=== PATIENT | male | born 1945 | race Caucasian/White ===

== ENCOUNTER 2018-05-03 22:43 | Observation (INO) ==
[2018-05-03] MEDS ORDERED: Morphine Inj 4 MG/ML Vial IV.PUSH ONE (23:19)
[2018-05-03 23:38] LABS: Baso % (Auto) 0.4 % (0.0-2.0); Eos # (Auto) 0.3 th/mm3 (0.0-0.4); Eos % (Auto) 2.4 % (0.0-4.0); Hematocrit 39.8 % (39.0-51.0); Hemoglobin 13.5 gm/dL (13.0-17.0); Lymph # (Auto) 0.5 th/mm3 (1.0-4.8); Mean Corpuscular HGB Conc 33.9 % (32.0-36.0); Mean Corpuscular Hemoglobin 31.3 pg (27.0-34.0); Mean Corpuscular Volume 92.5 fL (80.0-100.0); Mean Platelet Volume 7.8 fL (7.0-11.0); Mono # (Auto) 0.4 th/mm3 (0.0-0.9); Mono % (Auto) 3.8 % (0.0-8.0); Neut # (Auto) 9.6 th/mm3 (1.8-7.7); Neut % (Auto) 88.4 % (16.0-70.0); Platelet Count 216 th/mm3 (150-450); Red Cell Distribution Width 16.3 % (11.6-17.2); White Blood Count 10.9 th/mm3 (4.0-11.0)
[2018-05-03 23:53] LABS: Albumin 3.5 g/dL (3.4-5.0); Anion Gap 6 meq/L (5-15); Aspartate Aminotransferase 17 U/L (15-37); Blood Urea Nitrogen 18 mg/dL (7-18); Calcium 8.5 mg/dL (8.5-10.1); Carbon Dioxide 26.9 meq/L (21.0-32.0); Chloride 108 meq/L (98-107); Glomerular Filtration Rate 76 mL/min (>89); Glucose,Random 172 mg/dL (74-106); Lipase 115 U/L (73-393); Potassium 4.2 meq/L (3.5-5.1); Sodium 141 meq/L (136-145)
[2018-05-03 23:57] LABS: Alanine Aminotransferase 27 U/L (12-78); Alkaline Phosphatase 116 U/L (45-117); Total Protein 8.1 g/dL (6.4-8.2)
--- NOTE | 2018-05-03 23:59 | XR ---
EXAM DATE: 05/03/2018 11:17 PM EDT AGE/SEX: 72 years / Male INDICATIONS: Lower chest/upper abdomen pain today. CLINICAL DATA: This is the patient's initial encounter. Patient reports that signs and symptoms have been present for 1 day and indicates a pain score of 5/10. MEDICAL/SURGICAL HISTORY: . Chronic obstructive pulmonary disease. Asthma. Lung cancer. Hyperli pemia. Appendectomy. Nasal. Knee. Neck. COMPARISON: POI, XR CHEST PA AND LAT, 03/12/2018. TLI, PET/CT TUMOR, 04/22/2018. . FINDINGS: The heart size is normal. This increased density at the left upper and mid lateral lung. There is pro minence of the hilar regions bilaterally. The right lung is clear. The patient has had a recent PET s can. CONCLUSION: Persistent increased density in the lateral left upper and midlung. Persistent prominence of the hilar regions especially on the left. This appearance is unchanged. Electronically signed by: Ye Antonio MD 05/03/2018 11:58 PM EDT
--- NOTE | 2018-05-04 00:24 | ED ---
HPI General Chief complaint: Abdominal Pain Stated complaint: stomach pain Time Seen by Provider: 05/03/18 23:11 Source: patient Mode of arrival: ambulatory Limitations: no limitations History of Present Illness HPI narrative: 72-year-old male came to the emergency room with history of sudden onset epigastric and upper abdominal bandlike pain that started at 5 PM. Patient describes the pain like a pressure. No nausea or vomiting. Patient says at one point he became clammy and slightly sweaty that lasted for about 10 minutes. No aggravating or relieving factors identified. Patient does not recall having this kind of pain in the past. No radiation of the pain. Vital signs were relatively stable upon arrival. Patient appeared to be uncomfortable. He has history of COPD, coronary artery disease and lung cancer. Patient says that he was getting chemotherapy and radiation therapy up until August of this year. He had a PET scan done about 1 week ago where a new lesion on his left shoulder was noticed. Onset (ago): hour(s) (8) Location: chest and abdomen Severity scale (1-10): 6 Quality: constant Pain Consistency: constant Relieving factors: none Exacerbating factors: none Associated symptoms: Reports diaphoresis Treatments prior to arrival: Reports none Related Data Home Medications Medication Instructions Recorded Confirmed albuterol sulfate [ProAir HFA] 2 puff INHALATION TID 05/03/18 05/03/18 aspirin [Aspirin Low Dose] 81 mg PO DAILY 05/03/18 05/03/18 atorvastatin 80 mg PO DAILY 05/03/18 05/03/18 benzonatate [Tessalon Perles] 100 mg PO TID PRN 05/03/18 05/03/18 cetirizine [Zyrtec] 10 mg PO DAILY 05/03/18 05/03/18 clopidogrel [Plavix] 75 mg PO DAILY 05/03/18 05/03/18 coenzyme Q10 [CoQ-10] 100 mg PO DAILY 05/03/18 05/03/18 glucosamine sulfate 1,000 mg PO BID 05/03/18 05/03/18 ipratropium bromide [Atrovent HFA] 2 puff INHALATION TID 05/03/18 05/03/18 magnesium 20 mg/kg PO BID 05/03/18 05/03/18 multivitamin [Men's Multi-Vitamin] 1 tab PO DAILY 05/03/18 05/03/18 pantoprazole [Protonix] 20 mg PO DAILY 05/03/18 05/03/18 potassium 198 mg PO DAILY 05/03/18 05/03/18 Allergies Allergy/AdvReac Type Severity Reaction Status Date / Time penicillin G Allergy Severe MAY KILL Verified 05/03/18 22:47 HIM Review of Systems ROS: all other systems reviewed are negative Cardiovascular Reports chest pain and Reports diaphoresis Gastrointestinal Reports abdominal pain FOR[facility]LY [facility], [facility] Medical History Medical History ASHD (arteriosclerotic heart disease) (Acute) COPD (chronic obstructive pulmonary disease) (Acute) Heart attack (Acute) Hx of cancer of lung (Acute) Hyperlipemia (Acute) Surgical History Surgical History History of nasal surgery (Acute) Hx of appendectomy (Acute) Hx of knee surgery (Acute) Hx of neck surgery (Acute) Social History Social History Substance History: No History of Abuse Second Hand Smoke Exposure: No Smoking Status: Former smoker How Often Do You Have a Drink Containing Alcohol: 2 to 3 times a week Immunization History Tetanus Immunization: Unsure Exam Narrative Exam Narrative: GENERAL: Awake, alert, moderate distress, obese SKIN: Focused skin assessment warm/dry. HEAD: Atraumatic. Normocephalic. EYES: Pupils equal and round. No scleral icterus. No injection or drainage. ENT: No nasal bleeding or discharge. Mucous membranes pink and moist. NECK: Trachea midline. No JVD. CARDIOVASCULAR: Regular rate and rhythm. No murmur appreciated. RESPIRATORY: No accessory muscle use. Clear to auscultation. Breath sounds equal bilaterally. GASTROINTESTINAL: Abdomen soft, right upper quadrant tenderness on deep palpation, distended. Hepatic and splenic margins not palpable. MUSCULOSKELETAL: No obvious deformities. No clubbing. No cyanosis. No edema. NEUROLOGICAL: Awake and alert. No obvious cranial nerve deficits. Motor grossly within normal limits. Normal speech. PSYCHIATRIC: Appropriate mood and affect; insight and judgment normal. Course Initial Documented Vital Signs Temperature 97.8 F 05/03/18 22:45 Pulse Rate 70 05/03/18 22:45 Respiratory Rate 18 05/03/18 22:45 Blood Pressure 163/91 H 05/03/18 22:45 Pulse Oximetry 93 L 05/03/18 22:45 Last Documented Vital Signs Temperature 98.1 F 05/04/18 11:57 Pulse Rate 79 05/04/18 12:00 Respiratory Rate 18 05/04/18 11:57 Blood Pressure 131/64 05/04/18 11:57 Pulse Oximetry 94 L 05/04/18 11:57 Medical Decision Making MDM Narrative Medical decision making narrative: 1:30 AM blood test results are back and within acceptable limits. CT thoracic aortogram does not show any acute findings. Given his symptoms and history of coronary artery disease I am concerned with this pain since this could be cardiac in nature and would like to admit him to be ruled out. I explained this to the patient and he understands and agreeable with the plan. Medical Screen Exam Complete: Yes Emergency Medical Condition: Yes Lab Data Result diagrams: 05/04/18 05:59 05/04/18 05:59 Lab Results 05/03/18 05/03/18 05/04/18 Range/Units 23:05 23:05 02:18 WBC 10.9 (4.0-11.0) th/mm3 RBC 4.30 L (4.50-5.90) mil/mm3 Hgb 13.5 (13.0-17.0) gm/dL Hct 39.8 (39.0-51.0) % MCV 92.5 (80.0-100.0) fL MCH 31.3 (27.0-34.0) pg MCHC 33.9 (32.0-36.0) % RDW 16.3 (11.6-17.2) % Plt Count 216 (150-450) th/mm3 MPV 7.8 (7.0-11.0) fL Neut % (Auto) 88.4 H (16.0-70.0) % Lymph % (Auto) 5.0 L (9.0-44.0) % Park % (Auto) 3.8 (0.0-8.0) % Eos % (Auto) 2.4 (0.0-4.0) % Baso % (Auto) 0.4 (0.0-2.0) % Neut # (Auto) 9.6 H (1.8-7.7) th/mm3 Lymph # (Auto) 0.5 L (1.0-4.8) th/mm3 Park # (Auto) 0.4 (0.0-0.9) th/mm3 Eos # (Auto) 0.3 (0.0-0.4) th/mm3 Baso # (Auto) 0.0 (0.0-0.2) th/mm3 WBC Differential . Differential Comment Auto diff final Sodium 141 (136-145) meq/L Potassium 4.2 (3.5-5.1) meq/L Chloride 108 H (98-107) meq/L Carbon Dioxide 26.9 (21.0-32.0) meq/L Anion Gap 6 (5-15) meq/L BUN 18 (7-18) mg/dL Creatinine 0.98 (0.60-1.30) mg/dL Estimated GFR 76 L (>89) mL/min Random Glucose 172 H (74-106) mg/dL Calcium 8.5 (8.5-10.1) mg/dL Total Bilirubin 0.2 (0.2-1.0) mg/dL AST 17 (15-37) U/L ALT 27 (12-78) U/L Alkaline Phosphatase 116 (45-117) U/L Troponin I Less than 0.02 L Less than 0.02 L (0.02-0.05) ng/mL Total Protein 8.1 (6.4-8.2) g/dL Albumin 3.5 (3.4-5.0) g/dL Lipase 115 (73-393) U/L 05/04/18 05/04/18 Range/Units 05:59 05:59 WBC 10.0 (4.0-11.0) th/mm3 RBC 4.12 L (4.50-5.90) mil/mm3 Hgb 12.7 L (13.0-17.0) gm/dL Hct 38.5 L (39.0-51.0) % MCV 93.5 (80.0-100.0) fL MCH 30.8 (27.0-34.0) pg MCHC 32.9 (32.0-36.0) % RDW 16.9 (11.6-17.2) % Plt Count 194 (150-450) th/mm3 MPV 7.7 (7.0-11.0) fL Neut % (Auto) 76.5 H (16.0-70.0) % Lymph % (Auto) 9.8 (9.0-44.0) % Park % (Auto) 10.9 H (0.0-8.0) % Eos % (Auto) 2.3 (0.0-4.0) % Baso % (Auto) 0.5 (0.0-2.0) % Neut # (Auto) 7.6 (1.8-7.7) th/mm3 Lymph # (Auto) 1.0 (1.0-4.8) th/mm3 Park # (Auto) 1.1 H (0.0-0.9) th/mm3 Eos # (Auto) 0.2 (0.0-0.4) th/mm3 Baso # (Auto) 0.0 (0.0-0.2) th/mm3 WBC Differential . Differential Comment Auto diff final Sodium 141 (136-145) meq/L Potassium 4.2 (3.5-5.1) meq/L Chloride 106 (98-107) meq/L Carbon Dioxide 28.1 (21.0-32.0) meq/L Anion Gap 7 (5-15) meq/L BUN 18 (7-18) mg/dL Creatinine 0.90 (0.60-1.30) mg/dL Estimated GFR 83 L (>89) mL/min Random Glucose 91 (74-106) mg/dL Calcium 9.0 (8.5-10.1) mg/dL Total Bilirubin 0.2 (0.2-1.0) mg/dL AST 12 L (15-37) U/L ALT 24 (12-78) U/L Alkaline Phosphatase 106 (45-117) U/L Troponin I Less than 0.02 L (0.02-0.05) ng/mL Total Protein 8.0 (6.4-8.2) g/dL Albumin 3.4 (3.4-5.0) g/dL Lipase (73-393) U/L Imaging Data Radiologist's impression: Chest X-Ray 05/03/18 23:17 CONCLUSION: Persistent increased density in the lateral left upper and midlung. Persistent prominence of the hilar regions especially on the left. This appearance is unchanged. Thoracic Aorta CT 05/04/18 00:00 CONCLUSION: 1. Atherosclerotic calcifications without significant aneurysm or stenoses. 2. Consolidation in the superior segment the left lower lobe. This was present on the prior PET scan did demonstrate increased activity. There is also persistent adenopathy in the mediastinum as described above being most prominent in the subcarinal region. 3. Colonic diverticula without inflammatory change. ECG Data Attestation: I personally reviewed and interpreted this ECG as follows: Interpretation: Twelve-lead EKG was reviewed by me. Right bundle branch block, left axis deviation, first-degree AV block. Heart rate of 64 bpm. Discharge Plan Discharge Disposition Patient Disposition: 30 Still Patient Discharge Condition Condition: Stable Discharge Order Discharge Orders: Discharge Order (Routine); Ordered 05/04/18 Ordered By: Sandra Solano Discharge Details Anticipated Discharge Date: 05/04/18 Physicians Team ED Provider: Valery Welch Attending Provider: Yadi Gómez Other Providers: Yobany Thomas Status ED Status: Left Department Discharge Information Discharge Date/Time: 05/04/18 03:48
--- NOTE | 2018-05-04 01:20 | CT ---
EXAM DATE: 05/04/2018 12:27 AM EDT AGE/SEX: 72 years / Male INDICATIONS: Abdomen pain with shortness of breath. CLINICAL DATA: This is the patient's initial encounter. Patient reports that signs and symptoms have been present for 1 day and indicates a pain score of 6/10. MEDICAL/SURGICAL HISTORY: Chronic obstructive pulmonary disease. Carcinoma, lung. Asthma. Angiopl asty. RADIATION DOSE: 21.79 CTDI (mGy) COMPARISON: TLI, PET/CT TUMOR, 04/22/2018. . TECHNIQUE: Volumetric scanning was performed using a multi-row detector CT scanner during bolus infu saba of 85 ml Omnipaque 350 (iohexol) nonionic water-soluble contrast as a single exam dose. The da ta was post processed with a variety of visualization algorithms including full volume maximum intens ity projection, multi-planar sliding thin slab reformation, curved planar reformation, and surface re ndering techniques. Using automated exposure control and adjustment of the mA and/or kV according to patient size, radiation dose was kept as low as reasonably achievable to obtain optimal diagnostic q uality images. DICOM format image data is available electronically for review and comparison. FINDINGS: Lungs: There is increased density at the superior segment of the left lower lobe. There is diffuse e mphysematous change. It is peripheral density seen in the upper lungs being worse on the left. There are some linear suspected scarring in the upper lungs. Mediastinum: There are prominent lymph nodes in the left paratracheal, prevascular, AP window, precarinal and subcarinal regions. The largest lymp h node seen in the subcarinal region measuring 2.6 x 1.9 cm. Subcarinal lymph node demonstrate increa sed activity on the prior PET scan. Abdomen: The liver and spleen are free of focal defects. The gallbladder and pancreas demonstrate no abnormality. The adrenal glands are normal. The kidneys demonstrate no evidence of solid renal mass or hydronephrosis. No free fluid or abdominal masses are identified. No para-aortic adenopathy is see n. Colonic diverticula are seen being most prominent in the sigmoid region. There is degenerative maru nge in the lumbar spine. Pelvis: No evidence of free fluid or pelvic mass. No abnormally enlarged inguinal or retroperitoneal lymph nodes are present. The bladder is unremarkable. Thoracic Aorta: There are scattered atherosclerotic calcification seen throughout the arterial system . The thoracic aortic root is normal with normal branching of the great vessels. There is no evidenc e of aneurysm or dissection. Abdominal Aorta: The aorta is normal in caliber without aneurysm or dissection. The renal arteries are patent bilaterally. The proximal celiac and superior mesenteric arteries are patent and normal i n diameter. Pelvic Vessels: The internal iliac and external iliac vessels are patent without aneurysm or stenosi s. CONCLUSION: 1. Atherosclerotic calcifications without significant aneurysm or stenoses. 2. Consolidation in the superior segment the left lower lobe. This was present on the prior PET scan did demonstrate increased activity. There is also persistent adenopathy in the mediastinum as descri bed above being most prominent in the subcarinal region. 3. Colonic diverticula without inflammatory change. Electronically signed by: Ye Antonio MD 05/04/2018 1:19 AM EDT
[2018-05-04] MEDS ORDERED: Benzonatate 100 MG Capsule PO PRN (01:48)
[2018-05-04] MEDS ORDERED: Morphine Inj 4 MG/ML Vial IV.PUSH PRN (01:51)
[2018-05-04] MEDS ORDERED: Acetaminophen 325 MG Tablet PO PRN (01:52)
[2018-05-04] MEDS ORDERED: Bisacodyl 10 MG Supp RECTAL PRN (01:52)
[2018-05-04] MEDS ORDERED: Sod Chloride 0.9% Inj 1,000 ML IV.CONT SCH (02:00)
[2018-05-04] MEDS ORDERED: Sodium Chloride 0.9% 2 ML Flush PRN IV.FLUSH (02:10)
--- NOTE | 2018-05-04 02:22 | P.HPIM ---
History of Present Illness Primary Care Physician: TAMIE BALLESTEROS History of Present Illness: This is a 72-year-old male with a PMH of HTN, Hyperlipidemia, CAD, COPD,, Lung CA and O2 Dependent who presented to the ER w/ complaints of abdominal pain. States symptoms started abruptly earlier this evening. Pain is in band-like distribution across anterior abdomen, moderate, 6-7/10, non-radiating, no associated nausea, vomiting or diarrhea. Denies fever or chills. On arrival, BP 163/91, HR 70, O2 sat 93% on 2L NC, Afebrile. CBC unremarkable per chemistry unremarkable except for GFR 76. Troponin negative. CXR increased density lateral left upper and mid lung, unchanged. CTA Thoracic Aorta calcifications without significant aneurysm or stenosis, consolidation left lower lobe seen on prior imaging. S/p Morphine w/ improvement in pain complaints. - Diagnosis (1) Abdominal pain (2) Lung cancer Review of Systems PAST FAMILY HISTORY: Reviewed. No h/o DM or CAD All other systems reviewed negative except as stated in HPI [facility] - History History Provided By: Patient - Medical History Medical History: Medical History (Last Updated 05/03/18 @ 22:57 by Adelia Johnson RN) COPD (chronic obstructive pulmonary disease) Heart attack Hx of cancer of lung Hyperlipemia - Surgical History Surgical History: Surgical History (Last Updated 05/03/18 @ 22:47 by Jarred Shearer) History of nasal surgery Hx of appendectomy Hx of knee surgery Hx of neck surgery - Tobacco History Second Hand Smoke Exposure: No Tobacco Use In Past 30 Days: No Smoking Status: Former smoker - Alcohol History How Often Do You Have a Drink Containing Alcohol: 4 or more times a week - Substance Use History Substance History: No History of Abuse - Travel History Recent Travel in the [place] Within the Last 8 Weeks: No Recent Travel Out of the Country Within the Last 8 Weeks: No - Immunization History Tetanus Immunization: Unsure Medications and Allergies Active Medications: Active Medications Acetaminophen (Tylenol) 650 mg PO Q4H PRN PRN Reason: Temp > 100.4 Al Hydroxide/Mg Hydroxide (Milk Of Magnesia Liq) 30 ml PO Q12H PRN PRN Reason: Mild Constipation Albuterol (Duoneb Neb (Prn)) 1 ampul NEB Q4HR NEB PRN PRN Reason: SOB/WHEEZING Aspirin (Ecotrin) 81 mg PO DAILY NALINI Atorvastatin Calcium (Lipitor) 80 mg PO DAILY [facility] Benzonatate (Tessalon Perles) 100 mg PO TID PRN PRN Reason: COUGH Bisacodyl (Dulcolax Supp) 10 mg RECTAL DAILY PRN PRN Reason: SEVERE CONSITIPATION Cetirizine HCl (Zyrtec) 10 mg PO DAILY [facility] Clopidogrel Bisulfate (Plavix) 75 mg PO DAILY [facility] Sodium Chloride (Ns Inj) 1,000 mls @ 100 mls/hr IV.CONT .Q10H [facility] Lactulose (Lactulose Liq) 30 ml PO DAILY PRN PRN Reason: SEVERE CONSITIPATION Morphine Sulfate (Morphine Inj) 2 mg IV.PUSH Q4H PRN PRN Reason: PAIN 6-10 Multivitamins/Minerals (Theragran-M) 1 tab PO DAILY [facility] Ondansetron HCl (Zofran Inj) 4 mg IV.PUSH Q6H PRN PRN Reason: NAUSEA OR VOMITING Pantoprazole Sodium (Protonix) 20 mg PO DAILY [facility] Senna/Docusate Sodium (Irina-Colace) 1 tab PO BID [facility] Sennosides (Senokot) 17.2 mg PO Q12H PRN PRN Reason: Moderate Constipation Sodium Chloride (Ns Flush) 2 ml IV.FLUSH BID NALINI Sodium Chloride (Ns Flush) 2 ml IV.FLUSH PRN PRN PRN Reason: FLUSH AFTER USING IV ACCESS Allergies Allergy/AdvReac Type Severity Reaction Status Date / Time penicillin G Allergy Severe MAY KILL Verified 05/03/18 22:47 HIM Home Medications Medication Instructions Recorded Confirmed Type albuterol sulfate [ProAir HFA] 2 puff INHALATION TID 05/03/18 05/03/18 History aspirin [Aspirin Low Dose] 81 mg PO DAILY 05/03/18 05/03/18 History atorvastatin 80 mg PO DAILY 05/03/18 05/03/18 History benzonatate [Tessalon Perles] 100 mg PO TID PRN 05/03/18 05/03/18 History cetirizine [Zyrtec] 10 mg PO DAILY 05/03/18 05/03/18 History clopidogrel [Plavix] 75 mg PO DAILY 05/03/18 05/03/18 History coenzyme Q10 [CoQ-10] 100 mg PO DAILY 05/03/18 05/03/18 History glucosamine sulfate 1,000 mg PO BID 05/03/18 05/03/18 History ipratropium bromide [Atrovent HFA] 2 puff INHALATION TID 05/03/18 05/03/18 History magnesium 20 mg/kg PO BID 05/03/18 05/03/18 History multivitamin [Men's Multi-Vitamin] 1 tab PO DAILY 05/03/18 05/03/18 History pantoprazole [Protonix] 20 mg PO DAILY 05/03/18 05/03/18 History potassium 198 mg PO DAILY 05/03/18 05/03/18 History Exam Vital signs: Vital Signs 05/03/18 22:45 05/03/18 22:58 05/03/18 23:34 Temperature 97.8 F Pulse Rate 70 69 Respiratory Rate Blood Pressure 163/91 H 163/72 H Pulse Oximetry 93 L 95 05/04/18 01:47 Temperature Pulse Rate 70 Respiratory Rate Blood Pressure Pulse Oximetry Intake & Output 05/03/18 05/03/18 05/04/18 06:59 18:59 06:59 Weight 104.326 kg Narrative: PE: GENERAL: Extremely pleasant middle-aged white male in no acute distress. at bedside. SKIN: Focused skin assessment warm and dry. HEENT: PERRLA, EOMI. No scleral icterus or conjunctival pallor. No lid lag or facial droop. CARDIOVASCULAR: Regular rate and rhythm. No obvious murmurs to auscultation. No chest tenderness to palpation. RESPIRATORY: No obvious rhonchi or wheezing. Clear to auscultation. Breath sounds equal bilaterally. GASTROINTESTINAL: Abdomen soft, non-tender, nondistended. BS normal. MUSCULOSKELETAL: Extremities without clubbing, cyanosis, or edema. No obvious deformities. NEUROLOGICAL: Awake, alert and oriented x4. No focal neurologic deficits. Moving both upper and lower extremities spontaneously. PSYCHIATRIC: Appropriate mood and affect. Insight and judgment normal. Results - Labs CBC & Chem 7: 05/03/18 23:05 05/03/18 23:05 Labs: Short CBC 05/03/18 Range/Units 23:05 WBC 10.9 (4.0-11.0) th/mm3 Hgb 13.5 (13.0-17.0) gm/dL Hct 39.8 (39.0-51.0) % Plt Count 216 (150-450) th/mm3 BMP 05/03/18 23:05 Sodium 141 Potassium 4.2 Chloride 108 H Carbon Dioxide 26.9 BUN 18 Creatinine 0.98 Calcium 8.5 Cardiac Enzymes 05/03/18 Range/Units 23:05 Troponin I Less than 0.02 L (0.02-0.05) ng/mL Liver Function 05/03/18 Range/Units 23:05 Total Bilirubin 0.2 (0.2-1.0) mg/dL AST 17 (15-37) U/L ALT 27 (12-78) U/L Alkaline Phosphatase 116 (45-117) U/L Albumin 3.5 (3.4-5.0) g/dL - Imaging Impressions Chest X-Ray 05/03/18 23:17 CONCLUSION: Persistent increased density in the lateral left upper and midlung. Persistent prominence of the hilar regions especially on the left. This appearance is unchanged. Thoracic Aorta CT 05/04/18 00:00 CONCLUSION: 1. Atherosclerotic calcifications without significant aneurysm or stenoses. 2. Consolidation in the superior segment the left lower lobe. This was present on the prior PET scan did demonstrate increased activity. There is also persistent adenopathy in the mediastinum as described above being most prominent in the subcarinal region. 3. Colonic diverticula without inflammatory change. Caprini VTE Risk Assessment Caprini VTE Risk Assessment: No/Low Risk (score <= 1) Caprini Risk Assessment Model: Point Value = 1 Point Value = 2 Point Value = 3 Point Value = 5 Age 41-60 Minor surgery BMI > 25 kg/m2 Swollen legs Varicose veins or History of unexplained or recurrent spontaneous Oral contraceptives or hormone replacement Sepsis (< 1 month) Serious lung disease, including pneumonia (< 1 month) Abnormal pulmonary function Acute myocardial infarction Congestive heart failure (< 1 month) History of inflammatory bowel disease Medical patient at bed rest Age 61-74 Arthroscopic surgery Major open surgery (> 45 min) Laparoscopic surgery (> 45 min) Malignancy Confined to bed (> 72 hours) Immobilizing plaster cast Central venous access Age >= 75 History of VTE Family history of VTE Factor V Leiden Prothrombin [id number] Lupus anticoagulant Anticardiolipin antibodies Elevated serum homocysteine Heparin-induced thrombocytopenia Other congenital or acquired thrombophilia Stroke (< 1 month) Elective arthroplasty Hip, pelvis, or leg fracture Acute spinal cord injury (< 1 month) Prophylaxis Regimen: Total Risk Factor Score Risk Level Prophylaxis Regimen 0-1 Low Early ambulation 2 Moderate Order ONE of the following: *Sequential Compression Device (SCD) *Heparin 5000 units SQ BID 3-4 Higher Order ONE of the following medications: *Heparin 5000 units SQ TID *Enoxaparin/Lovenox 40 mg SQ daily (WT < 150 kg, CrCl > 30 mL/min) *Enoxaparin/Lovenox 30 mg SQ daily (WT < 150 kg, CrCl > 10-29 mL/min) *Enoxaparin/Lovenox 30 mg SQ BID (WT < 150 kg, CrCl > 30 mL/min) AND/OR *Sequential Compression Device (SCD) 5 or more Highest Order ONE of the following medications: *Heparin 5000 units SQ TID (Preferred with Epidurals) *Enoxaparin/Lovenox 40 mg SQ daily (WT < 150 kg, CrCl > 30 mL/min) *Enoxaparin/Lovenox 30 mg SQ daily (WT < 150 kg, CrCl > 10-29 mL/min) *Enoxaparin/Lovenox 30 mg SQ BID (WT < 150 kg, CrCl > 30 mL/min) AND *Sequential Compression Device (SCD) Assessment and Plan - Assessment (1) Abdominal pain Code(s): R10.9 - Unspecified abdominal pain Status: Acute (2) Lung cancer Code(s): C34.90 - Malignant neoplasm of unspecified part of unspecified bronchus or lung Status: Acute - Plan A/P: 1. Abdominal Pain: acute onset abdominal pain earlier tonight, no associated nausea/vomiting or diarrhea, CT Thoracic Aorta w/ significant atherosclerotic calcifications, however no acute findings, images reviewed. Continue analgesics /antiemetics as needed. Protonix. Initial trop negative, check serial cardiac enzymes to eval for atypical cardiac presentation in light of extensive atherosclerosis. Follows w/ Dr. Thomas as outpatient, will consult for further eval as needed. 2. Lung CA: O2 Dependent, CXR/CT Thoracic Aorta w/ no acute findings, consolidation of LLL similar to previous imaging. DuoNeb prn. 3. DVT Prophylaxis: SCD/Teds 4. Social work for d/c planning as needed. 5. Case discussed w/ ER physician at length, labs/records/imaging reviewed by me.
[2018-05-04 07:58] LABS: Baso % (Auto) 0.5 % (0.0-2.0); Eos # (Auto) 0.2 th/mm3 (0.0-0.4); Eos % (Auto) 2.3 % (0.0-4.0); Hematocrit 38.5 % (39.0-51.0); Hemoglobin 12.7 gm/dL (13.0-17.0); Lymph % (Auto) 9.8 % (9.0-44.0); Mean Corpuscular HGB Conc 32.9 % (32.0-36.0); Mean Corpuscular Hemoglobin 30.8 pg (27.0-34.0); Mean Corpuscular Volume 93.5 fL (80.0-100.0); Mean Platelet Volume 7.7 fL (7.0-11.0); Mono # (Auto) 1.1 th/mm3 (0.0-0.9); Mono % (Auto) 10.9 % (0.0-8.0); Neut # (Auto) 7.6 th/mm3 (1.8-7.7); Neut % (Auto) 76.5 % (16.0-70.0); Platelet Count 194 th/mm3 (150-450); Red Blood Count 4.12 mil/mm3 (4.50-5.90); Red Cell Distribution Width 16.9 % (11.6-17.2)
[2018-05-04 08:09] LABS: Alanine Aminotransferase 24 U/L (12-78); Albumin 3.4 g/dL (3.4-5.0); Anion Gap 7 meq/L (5-15); Aspartate Aminotransferase 12 U/L (15-37); Carbon Dioxide 28.1 meq/L (21.0-32.0); Chloride 106 meq/L (98-107); Glomerular Filtration Rate 83 mL/min (>89); Glucose,Random 91 mg/dL (74-106); Potassium 4.2 meq/L (3.5-5.1); Sodium 141 meq/L (136-145)
[2018-05-04 08:17] LABS: Alkaline Phosphatase 106 U/L (45-117); Blood Urea Nitrogen 18 mg/dL (7-18)
[2018-05-04] MEDS ORDERED: Senna/Docusate Sodium 8.6/50 MG Tablet PO SCH (09:00)
[2018-05-04] MEDS ORDERED: Pantoprazole Sodium 20 MG DR Tablet PO SCH (09:00)
[2018-05-04] MEDS ORDERED: Sodium Chloride 0.9% 2 ML Flush BID IV.FLUSH SCH (09:00)
[2018-05-04] MEDS ORDERED: Multivitamin/Minerals Therapeutic Tablet PO SCH (09:00)
--- NOTE | 2018-05-04 09:34 | P.CONCA ---
History of Present Illness Service: Cardiology Consult date: 05/04/18 Reason for Consult: Abdominal pain Primary Care Provider: TAMIE BALLESTEROS Chief Complaint: Band like abdominal pain History of Present Illness: Pleasant 72-year-old male well-known to our practice with a significant past cardiac history of ASHD status post WA in 2004, status post heart cath in 2006 showing single-vessel disease, RBBB, hypotension, hyperlipidemia, COPD followed by Dr. Palmer, and squamous cell lung cancer followed by Dr. Baer. His metoprolol was stopped at a prior visit due to symptomatic hypotension. Patient reports he had recent PETCT imaging with Dr. Chavez to follow-up on lung cancer. He also reports that he has been having left shoulder pain for the past couple of months, pain occurs anytime he moves his shoulder. He reports that yesterday he developed mid epigastric bandlike abdominal pain associated with diaphoresis, he took approximately 6 times and Gas-X pills with no relief. He decided to come to the ER for further evaluation. He denies any chest pain. He is oxygen dependent. He was given morphine upon arrival to the ER, and reports he has had no further abdominal pain since then. Troponins negative x3. Review of Systems All other systems reviewed negative except as stated in HPI PMFSH - History History Provided By: Patient - Medical History Medical History: Medical History (Last Updated 05/04/18 @ 09:27 by DENISE Bowman) ASHD (arteriosclerotic heart disease) COPD (chronic obstructive pulmonary disease) Heart attack Hx of cancer of lung Hyperlipemia - Surgical History Surgical History: Surgical History (Last Reviewed 05/04/18 @ 02:12 by Valery Welch MD) History of nasal surgery Hx of appendectomy Hx of knee surgery Hx of neck surgery - Tobacco History Second Hand Smoke Exposure: No Tobacco Use In Past 30 Days: No Smoking Status: Former smoker - Alcohol History How Often Do You Have a Drink Containing Alcohol: 2 to 3 times a week - Substance Use History Substance History: No History of Abuse - Travel History Recent Travel in the [place] Within the Last 8 Weeks: No Recent Travel Out of the Country Within the Last 8 Weeks: No - Immunization History Tetanus Immunization: Unsure Medications and Allergies Allergies Allergy/AdvReac Type Severity Reaction Status Date / Time penicillin G Allergy Severe MAY KILL Verified 05/03/18 22:47 HIM Home Medications Medication Instructions Recorded Confirmed Type albuterol sulfate [ProAir HFA] 2 puff INHALATION TID 05/03/18 05/03/18 History aspirin [Aspirin Low Dose] 81 mg PO DAILY 05/03/18 05/03/18 History atorvastatin 80 mg PO DAILY 05/03/18 05/03/18 History benzonatate [Tessalon Perles] 100 mg PO TID PRN 05/03/18 05/03/18 History cetirizine [Zyrtec] 10 mg PO DAILY 05/03/18 05/03/18 History clopidogrel [Plavix] 75 mg PO DAILY 05/03/18 05/03/18 History coenzyme Q10 [CoQ-10] 100 mg PO DAILY 05/03/18 05/03/18 History glucosamine sulfate 1,000 mg PO BID 05/03/18 05/03/18 History ipratropium bromide [Atrovent HFA] 2 puff INHALATION TID 05/03/18 05/03/18 History magnesium 20 mg/kg PO BID 05/03/18 05/03/18 History multivitamin [Men's Multi-Vitamin] 1 tab PO DAILY 05/03/18 05/03/18 History pantoprazole [Protonix] 20 mg PO DAILY 05/03/18 05/03/18 History potassium 198 mg PO DAILY 05/03/18 05/03/18 History Active Medications: Active Medications Acetaminophen (Tylenol) 650 mg PO Q4H PRN PRN Reason: Temp > 100.4 Al Hydroxide/Mg Hydroxide (Milk Of Jorge Crow) 30 ml PO Q12H PRN PRN Reason: Mild Constipation Albuterol (Duoneb Neb (Prn)) 1 ampul NEB Q4HR NEB PRN PRN Reason: SOB/WHEEZING Aspirin (Ecotrin) 81 mg PO DAILY NALINI Atorvastatin Calcium (Lipitor) 80 mg PO DAILY NALINI Benzonatate (Tessalon Perles) 100 mg PO TID PRN PRN Reason: COUGH Bisacodyl (Dulcolax Supp) 10 mg RECTAL DAILY PRN PRN Reason: SEVERE CONSITIPATION Cetirizine HCl (Zyrtec) 10 mg PO DAILY NALINI Clopidogrel Bisulfate (Plavix) 75 mg PO DAILY NALINI Sodium Chloride (Ns Inj) 1,000 mls @ 100 mls/hr IV.CONT .Q10H NALINI Last Admin: 05/04/18 04:20 Dose: 100 mls/hr Lactulose (Lactulose Liq) 30 ml PO DAILY PRN PRN Reason: SEVERE CONSITIPATION Morphine Sulfate (Morphine Inj) 2 mg IV.PUSH Q4H PRN PRN Reason: PAIN 6-10 Multivitamins/Minerals (Theragran-M) 1 tab PO DAILY [facility] Ondansetron HCl (Zofran Inj) 4 mg IV.PUSH Q6H PRN PRN Reason: NAUSEA OR VOMITING Pantoprazole Sodium (Protonix) 20 mg PO DAILY [facility] Senna/Docusate Sodium (Irina-Colace) 1 tab PO BID [facility] Sennosides (Senokot) 17.2 mg PO Q12H PRN PRN Reason: Moderate Constipation Sodium Chloride (Ns Flush) 2 ml IV.FLUSH BID [facility] Sodium Chloride (Ns Flush) 2 ml IV.FLUSH PRN PRN PRN Reason: FLUSH AFTER USING IV ACCESS Exam Vital signs: Vital Signs 05/03/18 22:45 05/03/18 22:58 05/03/18 23:34 Temperature 97.8 F Pulse Rate 70 69 Respiratory Rate 18 22 18 Blood Pressure 163/91 H 163/72 H Pulse Oximetry 93 L 95 05/04/18 01:00 05/04/18 01:47 05/04/18 03:37 Temperature Pulse Rate 66 70 76 Respiratory Rate 18 Blood Pressure 144/72 H Pulse Oximetry 99 05/04/18 03:43 05/04/18 04:00 05/04/18 06:10 Temperature 98.2 F Pulse Rate 71 65 Respiratory Rate 19 Blood Pressure 139/65 Pulse Oximetry 97 96 05/04/18 08:00 05/04/18 09:00 Temperature 97.9 F Pulse Rate 65 66 Respiratory Rate 20 Blood Pressure 127/61 Pulse Oximetry 95 Intake & Output 05/03/18 05/04/18 05/04/18 18:59 06:59 18:59 Weight 108.6 kg Other: Weight On Admission 108.6 kg - Constitutional no acute distress, average body habitus - Routine HEENT Exam Head: Present: normocephalic, atraumatic Eye: Present: PERRL, normal accommodation ENT: Present: mucous membranes moist - Routine Neck Exam Present: supple - Routine Respiratory Exam Present: rhonchi, wheezes Comments: oxygen dependent - Routine Cardiovascular Exam Present: RRR - Routine Abdominal Exam Present: soft - Routine Skin Exam Present: intact - Routine Neurological Exam Present: alert, oriented X3 Results 05/04/18 05:59 05/04/18 05:59 Cardiac Enzymes 05/03/18 05/04/18 05/04/18 Range/Units 23:05 02:18 05:59 AST 17 12 L (15-37) U/L Troponin I Less than 0.02 L Less than 0.02 L Less than 0.02 L (0.02-0.05) ng/mL CBC 05/03/18 05/04/18 Range/Units 23:05 05:59 WBC 10.9 10.0 (4.0-11.0) th/mm3 RBC 4.30 L 4.12 L (4.50-5.90) mil/mm3 Hgb 13.5 12.7 L (13.0-17.0) gm/dL Hct 39.8 38.5 L (39.0-51.0) % Plt Count 216 194 (150-450) th/mm3 Neut # (Auto) 9.6 H 7.6 (1.8-7.7) th/mm3 Lymph # (Auto) 0.5 L 1.0 (1.0-4.8) th/mm3 [place] # (Auto) 0.4 1.1 H (0.0-0.9) th/mm3 Eos # (Auto) 0.3 0.2 (0.0-0.4) th/mm3 Baso # (Auto) 0.0 0.0 (0.0-0.2) th/mm3 Comprehensive Metabolic Panel 05/03/18 05/04/18 Range/Units 23:05 05:59 Sodium 141 141 (136-145) meq/L Potassium 4.2 4.2 (3.5-5.1) meq/L Chloride 108 H 106 (98-107) meq/L Carbon Dioxide 26.9 28.1 (21.0-32.0) meq/L BUN 18 18 (7-18) mg/dL Creatinine 0.98 0.90 (0.60-1.30) mg/dL Calcium 8.5 9.0 (8.5-10.1) mg/dL AST 17 12 L (15-37) U/L ALT 27 24 (12-78) U/L Alkaline Phosphatase 116 106 (45-117) U/L Total Protein 8.1 8.0 (6.4-8.2) g/dL Albumin 3.5 3.4 (3.4-5.0) g/dL Intake and Output 05/03/18 05/04/18 05/04/18 22:59 06:59 14:59 Other: Weight 104.326 kg 108.6 kg Weight On Admission 108.6 kg - Imaging and Cardiology Imaging: Impressions Chest X-Ray 05/03/18 23:17 CONCLUSION: Persistent increased density in the lateral left upper and midlung. Persistent prominence of the hilar regions especially on the left. This appearance is unchanged. Thoracic Aorta CT 05/04/18 00:00 CONCLUSION: 1. Atherosclerotic calcifications without significant aneurysm or stenoses. 2. Consolidation in the superior segment the left lower lobe. This was present on the prior PET scan did demonstrate increased activity. There is also persistent adenopathy in the mediastinum as described above being most prominent in the subcarinal region. 3. Colonic diverticula without inflammatory change. EKG interpretations - Dysrhythmias Sinus rhythms and dysrhythmias: sinus rhythm - Blocks, axis, hypertrophy, ST abn AV and intraventricular conduction: right bundle branch block (fixed/ intermittent, complete/incomplete) Assessment and Plan - Plan Assessment Abdominal Pain ASHD Lung CA Hypotension Plan -Band like mid epigastric abdominal pain resolved after 1 dose of Morphine. Pt denies any chest pain. Troponins are negative. On ASA and statin. Symptomatic hypotension in the past on Metoprolol. All options discussed with patient, including inpatient testing verses outpatient testing. Will plan to see patient in the office in 1-2 weeks and will consider outpatient stress test. -Squamous cell lung CA, patient had recent PET/CT. New left shoulder pain with movement, patient reports Dr. Chavez ordered MRI of left shoulder, concern for metastatic disease. Pending follow up hope with Dr. Chavez. Will plan to DC home and follow up in office in 1-2 weeks. The patient was seen and evaluated by Dr. Thomas who participated in care management and decision making. The exam, history, and the medical decision-making described in the above note were completed with the assistance of the mid-level provider. I reviewed and agree with the findings presented. I attest that I had a [id number] encounter with the patient on the same day, and personally performed and documented my assessment and findings in the medical record. Epigastric pain negative troponin will see in the office, Code Status: Full Code Discussed Condition With: RN
--- NOTE | 2018-05-04 10:24 | P.PN ---
Subjective Interval history: Follow-up for abdominal pain, atypical chest pains. Patient reports his symptoms have completely resolved. Denies any chest pain, abdominal pain, nausea/vomiting, diaphoresis, or shortness of breath. He wants to go home. Physical Exam Vital signs: Vital Signs 05/03/18 22:45 05/03/18 22:58 05/03/18 23:34 Temperature 97.8 F Pulse Rate 70 69 Respiratory Rate 18 22 18 Blood Pressure 163/91 H 163/72 H Pulse Oximetry 93 L 95 05/04/18 01:00 05/04/18 01:47 05/04/18 03:37 Temperature Pulse Rate 66 70 76 Respiratory Rate 18 Blood Pressure 144/72 H Pulse Oximetry 99 05/04/18 03:43 05/04/18 04:00 05/04/18 06:10 Temperature 98.2 F Pulse Rate 71 65 Respiratory Rate 19 Blood Pressure 139/65 Pulse Oximetry 97 96 05/04/18 08:00 05/04/18 09:00 Temperature 97.9 F Pulse Rate 65 66 Respiratory Rate 20 Blood Pressure 127/61 Pulse Oximetry 95 Intake & Output 05/03/18 05/04/18 05/04/18 18:59 06:59 18:59 Weight 108.6 kg Other: Weight On Admission 108.6 kg Narrative: GENERAL: Pleasant middle-aged white male in no acute distress. SKIN: Focused skin assessment warm and dry. HEENT: PERRL, EOMI. No scleral icterus or conjunctival pallor. No lid lag or facial droop. CARDIOVASCULAR: Regular rate and rhythm. No obvious murmurs to auscultation. No chest tenderness to palpation. RESPIRATORY: No obvious rhonchi or wheezing. Clear to auscultation. Breath sounds equal bilaterally. GASTROINTESTINAL: Abdomen soft, non-tender, nondistended. BS normal. MUSCULOSKELETAL: Extremities without clubbing, cyanosis, or edema. No obvious deformities. NEUROLOGICAL: Awake, alert and oriented x4. No focal neurologic deficits. Moving both upper and lower extremities spontaneously. PSYCHIATRIC: Appropriate mood and affect. Insight and judgment normal. Results - Labs CBC & Chem 7: 05/04/18 05:59 05/04/18 05:59 Laboratory Results - last 24 hr 05/03/18 05/03/18 05/04/18 23:05 23:05 02:18 WBC 10.9 RBC 4.30 L Hgb 13.5 Hct 39.8 MCV 92.5 MCH 31.3 MCHC 33.9 RDW 16.3 Plt Count 216 MPV 7.8 Neut % (Auto) 88.4 H Lymph % (Auto) 5.0 L [place] % (Auto) 3.8 Eos % (Auto) 2.4 Baso % (Auto) 0.4 Neut # (Auto) 9.6 H Lymph # (Auto) 0.5 L [place] # (Auto) 0.4 Eos # (Auto) 0.3 Baso # (Auto) 0.0 WBC Differential . Differential Comment Auto diff final Sodium 141 Potassium 4.2 Chloride 108 H Carbon Dioxide 26.9 Anion Gap 6 BUN 18 Creatinine 0.98 Estimated GFR 76 L Random Glucose 172 H Calcium 8.5 Total Bilirubin 0.2 AST 17 ALT 27 Alkaline Phosphatase 116 Troponin I Less than 0.02 L Less than 0.02 L Total Protein 8.1 Albumin 3.5 Lipase 115 05/04/18 05/04/18 05:59 05:59 WBC 10.0 RBC 4.12 L Hgb 12.7 L Hct 38.5 L MCV 93.5 MCH 30.8 MCHC 32.9 RDW 16.9 Plt Count 194 MPV 7.7 Neut % (Auto) 76.5 H Lymph % (Auto) 9.8 [place] % (Auto) 10.9 H Eos % (Auto) 2.3 Baso % (Auto) 0.5 Neut # (Auto) 7.6 Lymph # (Auto) 1.0 [place] # (Auto) 1.1 H Eos # (Auto) 0.2 Baso # (Auto) 0.0 WBC Differential . Differential Comment Auto diff final Sodium 141 Potassium 4.2 Chloride 106 Carbon Dioxide 28.1 Anion Gap 7 BUN 18 Creatinine 0.90 Estimated GFR 83 L Random Glucose 91 Calcium 9.0 Total Bilirubin 0.2 AST 12 L ALT 24 Alkaline Phosphatase 106 Troponin I Less than 0.02 L Total Protein 8.0 Albumin 3.4 Lipase - Imaging Impressions Chest X-Ray 05/03/18 23:17 CONCLUSION: Persistent increased density in the lateral left upper and midlung. Persistent prominence of the hilar regions especially on the left. This appearance is unchanged. Thoracic Aorta CT 05/04/18 00:00 CONCLUSION: 1. Atherosclerotic calcifications without significant aneurysm or stenoses. 2. Consolidation in the superior segment the left lower lobe. This was present on the prior PET scan did demonstrate increased activity. There is also persistent adenopathy in the mediastinum as described above being most prominent in the subcarinal region. 3. Colonic diverticula without inflammatory change. Assessment and Plan - Assessment (1) Abdominal pain Code(s): R10.9 - Unspecified abdominal pain Status: Acute (2) Lung cancer Code(s): C34.90 - Malignant neoplasm of unspecified part of unspecified bronchus or lung Status: Acute - Plan 72-year-old male with a PMH of HTN, Hyperlipidemia, CAD, COPD,, Lung CA and O2 Dependent who presented to the ER w/ complaints of abdominal pain. Abdominal Pain/Atypical Chest Pain: acute onset upper abdominal pain earlier tonight, no associated nausea/vomiting or diarrhea -CT Thoracic Aorta w/ significant atherosclerotic calcifications, however no acute findings, images reviewed. -Continue analgesics/antiemetics as needed. -Protonix. -ACS ruled out with negative serial cardiac enzymes x3 -Consult cardiolgist Dr. Thomas to eval for atypical cardiac presentation in light of extensive atherosclerosis. -Seen by cardiology, plans for outpatient Lexiscan in 1-2 weeks, cleared for discharge by cardiology -Symptoms resolved, patient feels well and wants to go home, will discharge. Lung CA: O2 Dependent, CXR/CT Thoracic Aorta w/ no acute findings, consolidation of LLL similar to previous imaging. -Continue O2 and DuoNeb prn. -Respiratory status stable and at baseline DVT Prophylaxis: SCD/Teds Discharge Planning: Discharge patient to home Condition on discharge: Stable Heart Healthy Diet as tolerated Ad Shaista activity Rx written: no new meds Follow-up with primary care physician and model maker apprentice Dr. Thomas
[2018-05-04 12:03] VITALS: BP 131/64; RESP 18; TEMP 98.1; O2SAT 94
[2018-05-04 13:36] VITALS: PULSE 79
--- NOTE | 2018-05-04 16:26 | ECG ---
Date Performed: 05/03/2018 Time Performed: 23:06:57 PTAGE: 72 years EKG: Sinus rhythm WITH SINUS ARRHYTHMIA WITH FIRST DEGREE AV BLOCK RIGHT BUNDLE BRANCH BLOCK LEFT ANTERIOR FASCICULAR BLOCK Since the previous tracing, no significant change noted ABNORMAL ECG PREVIOUS TRACING : 03/12/2016 13.17 DOCTOR: Lori Coles Interpretating Date/Time 05/04/2018 16:24:30
== END 2018-05-04 15:06 | disposition home or self-care (01) ==
LOC: NEDA 22:43 → NEPC 22:43 → NEDA 05-04 03:48 → NEPFCDU 05-04 03:52
PROVIDERS: ADMIT Hospitalist; ATTEND Hospitalist
DX: Z99.81 Dependence on supplemental oxygen; R59.9 Enlarged lymph nodes, unspecified; Z79.82 Long term (current) use of aspirin; Z79.02 Long term (current) use of antithrombotics/antiplatelets; E78.5 Hyperlipidemia, unspecified; J44.9 Chronic obstructive pulmonary disease, unspecified; Z68.31 Body mass index [BMI] 31.0-31.9, adult; E66.9 Obesity, unspecified; I25.2 Old myocardial infarction; I10 Essential (primary) hypertension; I25.10 Atherosclerotic heart disease of native coronary artery without angina pectoris; C34.90 Malignant neoplasm of unspecified part of unspecified bronchus or lung; K57.30 Diverticulosis of large intestine without perforation or abscess without bleeding; Z87.891 Personal history of nicotine dependence; Z90.49 Acquired absence of other specified parts of digestive tract